=== PATIENT | male | born 1985 | race American Indian/Alaskan Native ===

== ENCOUNTER 2018-07-14 11:28 | Emergency (ER) | payer OTHER ==
--- NOTE | 2018-07-14 11:53 | EDM.PDOC ---
ED HPI GENERAL MEDICAL PROBLEM - General Chief Complaint: Upper Extremity Injury/Pain Stated Complaint: RT PINKY FINGER INJURY Time Seen by Provider: 07/14/18 11:52 Source of Information: Reports: Patient History Limitations: Reports: No Limitations - History of Present Illness INITIAL COMMENTS - FREE TEXT/NARRATIVE: 32 yo M comes in today for R pinky injury while at work. He states he works at [employer] in [employer] and slipped while trying to lift a floor plate and got his right pinky pinched between the floor and a piece of metal, which caused part of the pinky to be cut off. On exam, there is still active bleeding and there looks to be a 2cm partial amputation of the fat pad. Most of the skin is missing except for a small flap, which would only cover about 1/4 of the wound. His finger is still neurovascularly intact, his has good ROM, and his nail is still in place. He is unsure of his last tetanus shot. Right Finger-Little Pain Score (Numeric/FACES): 10 - Related Data Allergies Allergy/AdvReac Type Severity Reaction Status Date / Time No Known Allergies Allergy Verified 07/14/18 12:13 Home Meds: Home Meds Cephalexin [Keflex] 500 mg PO Q6H 10 Days #40 capsule 07/14/18 [Rx] Past Medical History - Past Health History Medical/Surgical History: Denies Medical/Surgical History Social & Family History - Tobacco Use Smoking Status *Q: Never Smoker - Caffeine Use Caffeine Use: Reports: None Review of Systems - Review of Systems Review Of Systems: ROS reveals no pertinent complaints other than HPI. ED EXAM, GENERAL - Physical Exam Exam: See Below Exam Limited By: No Limitations General Appearance: Alert, WD/WN, No Apparent Distress Eye Exam: Bilateral Eye: Normal Inspection Ears: Normal External Exam, Hearing Grossly Normal Head: Atraumatic, Normocephalic Neck: Normal Inspection, Supple, Non-Tender, Full Range of Motion Peripheral Pulses: 3+: Radial (L), Radial (R) Extremities: Normal Range of Motion, Normal Capillary Refill, Other (R 5th digit bleeding and pain s/p partial amputation) Neurological: Alert, Oriented, CN II-XII Intact, Normal Cognition, Normal Gait, Normal Reflexes, No Motor/Sensory Deficits Psychiatric: Normal Affect, Normal Mood Skin Exam: Warm, Dry, Wound/Incision (2cm partial amputation of R 5th digit fat pad) Course - Vital Signs Last Recorded V/S: Last Vital Signs Temp 98.2 F 07/14/18 11:44 Pulse 64 07/14/18 11:44 Resp 16 07/14/18 11:44 BP 169/94 H 07/14/18 11:44 Pulse Ox 98 07/14/18 11:44 - Orders/Labs/Meds Orders: Active Orders 24 hr Category Date Time Status Vaccines to be Administered [RC] PER UNIT ROUTINE Care 07/14/18 12:09 Active Fingers Fifth Digit Rt F9 [CR] Stat Exams 07/14/18 12:06 Taken Meds: Medications Discontinued Medications Generic Name Dose Route Start Last Admin Trade Name Freq PRN Reason Stop Dose Admin Ceftriaxone Sodium 1 gm 07/14/18 12:33 07/14/18 12:58 Rocephin IM 07/14/18 12:34 1 gm ONETIME ONE Administration Diphtheria/Tetanus/Acell Pertussis 0.5 ml 07/14/18 12:07 07/14/18 12:27 Adacel IM 07/14/18 12:08 0.5 ml .ONCE ONE Administration Ketorolac Tromethamine 30 mg 07/14/18 13:04 07/14/18 13:07 Toradol IM 07/14/18 13:05 30 mg ONETIME ONE Administration - Re-Assessments/Exams Free Text/Narrative Re-Assessment/Exam: 07/14/18 12:06 I have ordered Xray of the pinky and Tdap 07/14/18 12:33 Xray reviewed by myself and Dr. Morales- there is a distal phalange fracture present. Will give 1g Rocephin here, Toradol for pain here, and Keflex at home. 07/14/18 12:50 [address] case with orthopedic Dr. De Santiago at [facility] in [place]. Sent him Xrays and photos of the injury. He will call me back with his assessment/plan. 07/14/18 13:15 Dr. De Santiago has called me back. He agrees with antibiotics at home and would also like for him to do moist/dry dressing changes twice per day. He will follow up with the patient on Monday regarding how they would like to proceed, he is thinking possible surgical intervention vs. graft vs. healing via secondary intention. 07/14/18 13:26 Discussed with patient. He agrees with the plan. He is stable enough to go home. May go back to work with restrictions of using that fingers and keeping it clean and dry. Departure - Departure Time of Disposition: 13:26 Disposition: Home, Self-Care 01 Condition: Fair Clinical Impression: Fracture of distal phalanx of finger, open - Discharge Information *PRESCRIPTION DRUG MONITORING PROGRAM REVIEWED*: Not Applicable *COPY OF PRESCRIPTION DRUG MONITORING REPORT IN PATIENT WILMA: Not Applicable Prescriptions: Cephalexin [Keflex] 500 mg PO Q6H 10 Days #40 capsule Instructions: Finger Fracture, Adult, [id number] Referrals: PCP,None [Primary Care Provider] - Forms: ED Department Discharge Additional Instructions: You were seen in the ED today for a right pinky injury at work. It was found on exam that you had a partial amputation of fat pad of your finger (which could not be sutured) and Xray shows that you have fractured and are now missing a piece of the bone as well. You were given antibiotics while here, as this is considered an "open" fracture and susceptible to infection, and will be sent home with Keflex 500mg 4 times per day x 10 days at home to prevent infection. It is also recommended you do a "moist/dry dressing", which would be to keep your dressing wet and cover with a dry bandage, changing it twice per day. You may need to soak the entire thing in order to get the bandage off for changes. Discussed with Dr. De Santiago at [facility] in [place] and he will call you Monday to make a plan for follow up. If you do not receive a call , you can reach him at [phone]. Please return to the ED if new or worsening symptoms. - My Orders Last 24 Hours: My Active Orders 07/14/18 12:06 Fingers Fifth Digit Rt F9 [CR] Stat 07/14/18 12:09 Vaccines to be Administered [RC] PER UNIT ROUTINE - Assessment/Plan Last 24 Hours: My Active Orders 07/14/18 12:06 Fingers Fifth Digit Rt F9 [CR] Stat 07/14/18 12:09 Vaccines to be Administered [RC] PER UNIT ROUTINE
[2018-07-14] MEDS ORDERED: Diphtheria,Pertussis(Acell),Tetanus Vaccine 0.5 ML Syringe IM ONE (12:07)
[2018-07-14] MEDS ORDERED: cefTRIAXone 1 GM Vial IM ONE (12:33)
[2018-07-14] MEDS ORDERED: Ketorolac 30 MG/ML SDV IM ONE (13:04)
--- NOTE | 2018-07-14 20:17 | CR ---
Right fifth finger: Four views of the right fifth finger were obtained. Comparison: No prior finger study. Soft tissue and bony amputation is seen within the distal right fifth finger. Small calcification which is well corticated is seen next to the PIP joint which is felt to be old. Deformity of the fifth metacarpal is seen compatible with old healed injury. No additional abnormality is noted. Impression: 1. Soft tissue amputation and bony amputation within the distal right fifth finger. 2. Other incidental findings. Diagnostic code #2
== END 2018-07-14 14:00 | disposition home or self-care (01) ==
LOC: JD.ED 11:28
DX: S68.126A Partial traumatic metacarpophalangeal amputation of right little finger, initial encounter (principal); W23.0XXA Caught, crushed, jammed, or pinched between moving objects, initial encounter; Z23 Encounter for immunization
CPT/HCPCS: 73140; 90471; 90700; 96372; 99283; J0696; J1885; 99284